=== PATIENT | female | born 1995 | race Caucasian/White ===

== ENCOUNTER 2020-12-06 07:56 | Inpatient (IN) ==
[2020-12-06] MEDS ORDERED: EPHEDrine 50 MG/ML VIAL IVP PRN (08:02)
[2020-12-06] MEDS ORDERED: Epidural Premix (fent/bupiv) 110 ML EP SCH (08:15)
[2020-12-06] MEDS ORDERED: Famotidine 20 MG/2 ML VIAL IVP PRN (08:45)
[2020-12-06] MEDS ORDERED: *HR* Nalbuphine 10 MG/ML AMPUL IV PRN (08:45)
[2020-12-06] MEDS ORDERED: Azithromycin 500 MG in 0.9 % Sodium Chloride 250 ML IVPB PRN (08:45)
[2020-12-06] MEDS ORDERED: Ondansetron 4 MG/2 ML VIAL IVP PRN (08:45)
[2020-12-06] MEDS ORDERED: Lidocaine 1% 20 ML MDV INFILT PRN (08:45)
[2020-12-06] MEDS ORDERED: Naloxone 0.4 MG/ML INJ IVP PRN (08:45)
[2020-12-06] MEDS ORDERED: Metoclopramide 10 MG/2 ML VIAL IVP PRN (08:45)
[2020-12-06] MEDS ORDERED: miSOPROStoL 25 MCG TABLET PO PRN (09:07)
[2020-12-06 09:42] LABS: Basophils % 0.2 %; Eosinophils # 0.1 K/mcL (0.0-0.6); Eosinophils % 1.2 %; Hematocrit 33.3 % (35.3-44.9); Hemoglobin 10.3 g/dL (11.5-15.4); Immature Granulocytes % 0.5 % (0-4); Lymphocytes # 2.2 K/mcL (0.6-4.6); Lymphocytes % 24.6 %; Mean Corpuscular HGB Conc 30.9 g/dL (31.6-35.5); Mean Corpuscular Hemoglobin 25.1 pg (28.0-33.3); Mean Corpuscular Volume 81.2 fL (83.0-100.0); Mean Platelet Volume 11.4 fL (9.4-12.4); Monocytes # 0.7 K/mcL (0.0-1.3); Monocytes % 7.6 %; Neutrophils # 5.8 K/mcL (1.6-8.9); Platelet Count 333 K/mcL (140-400); Red Cell Distribution Width 14.6 % (11.5-14.5); Segmented Neutrophils % 65.9 %; White Blood Count 8.9 K/mcL (4.3-11.1)
[2020-12-06 10:11] LABS: Amphetamine Screen,Urine Negative ng/mL (Cutoff=1000); Barbiturate Screen,Urine Negative ng/mL (Cutoff=200); Benzodiazepines Screen,Urine Negative ng/mL (Cutoff=200); Cannabinoid Screen,Urine Negative ng/mL (Cutoff = 50); Cocaine Screen,Urine Negative ng/mL (Cutoff= 300); Opiate Screen,Urine Negative ng/mL (Cutoff=300); Phencyclidine Screen,Urine Negative ng/mL (Cutoff=25)
[2020-12-06 10:12] LABS: Influenza A PCR Negative (Negative); Influenza B PCR Negative (Negative); Resp. Syncytial Virus PCR Negative (Negative)
[2020-12-06 10:22] LABS: SARS-CoV-2 by PCR (In House) Negative (Negative)
[2020-12-06] MEDS: Ringers Solution, Lactated 1,000 ML IVC SCH ×3 (10:25→19:03)
[2020-12-06] MEDS ORDERED: Oxytocin 20 units/ LR 1000 mL 20 UNIT/1,000 ML BAG IVC SCH (16:15)
[2020-12-07] MEDS ORDERED: Oxytocin 20 units/ LR 1000 mL 20 UNIT/1,000 ML BAG IVC SCH (00:58)
[2020-12-07] MEDS ORDERED: Measles/Mumps/Rubella Vacc 0.5 ML VIAL SQ PRN (00:58)
[2020-12-07] MEDS ORDERED: Benzocaine/Menthol 56 GM AEROSOL SPRAY TP PRN (00:58)
[2020-12-07 06:41] LABS: Basophils % 0.1 %; Eosinophils # 0.1 K/mcL (0.0-0.6); Eosinophils % 0.3 %; Hematocrit 32.5 % (35.3-44.9); Hemoglobin 9.9 g/dL (11.5-15.4); Immature Granulocytes % 0.5 % (0-4); Lymphocytes # 1.6 K/mcL (0.6-4.6); Lymphocytes % 9.6 %; Mean Corpuscular HGB Conc 30.5 g/dL (31.6-35.5); Mean Corpuscular Hemoglobin 25.1 pg (28.0-33.3); Mean Corpuscular Volume 82.3 fL (83.0-100.0); Mean Platelet Volume 11.6 fL (9.4-12.4); Monocytes # 0.9 K/mcL (0.0-1.3); Monocytes % 5.2 %; Neutrophils # 13.7 K/mcL (1.6-8.9); Platelet Count 304 K/mcL (140-400); Red Blood Count 3.95 M/mcL (3.82-4.97); Red Cell Distribution Width 14.5 % (11.5-14.5); Segmented Neutrophils % 84.3 %
[2020-12-07 06:45] LABS: White Blood Count 16.3 K/mcL (4.3-11.1)
[2020-12-07] MEDS: Acetaminophen 325 MG TABLET PO PRN ×2 (07:41→16:21)
[2020-12-07] MEDS: Ibuprofen 600 MG TABLET PO PRN ×2 (07:41→16:21)
[2020-12-07] MEDS ORDERED: Prenatal Vit/FA 1 EACH TABLET PO SCH (09:00)
[2020-12-07] MEDS ORDERED: Rho Immune Globulin 1,500 UNIT SYRINGE IM ONE (12:29)
[2020-12-07 20:50] VITALS: BP 125/82; PULSE 70; TEMP 97.9; O2SAT 99
== END 2020-12-08 01:25 | disposition home or self-care (01) | DRG 806 ==
LOC: 1NENULAB 07:56 → 1NENUOBS 12-07 01:27
PROVIDERS: ADMIT Obstetrics & Gynecology; ATTEND Obstetrics & Gynecology